=== PATIENT | male | born 1940 | race Caucasian/White ===

== ENCOUNTER → 2016-09-29 | Outpatient (CLI) | payer MEDICARE ==
[~2016-09-29] MED LIST: ASPIRIN81 M1 PO; CIPROFLOXACIN500 MG PO; DAYPRO600 M1 PO; DILANTIN PO; HYDROCODONE BIT1 T11 PO; KEFLEX500 MG PO; Lopressor25 MG PO; METOPROLOL; ONDANSETRON ODT4 MG PO; PREDNISONE50 MG PO; SIMVASTATIN40 MG PO; VERAPAMIL HCL180 MG PO; WARFARIN SOD5 MG PO
[2016-09-29 09:59] LABS: BASO # 0.1 10*3/uL (0.0-0.1); BASO % 0.9 % (0.0-1.0); EOS # 0.2 10*3/uL (0.0-0.4); EOS % 2.7 % (1.0-4.0); HEMOGLOBIN 15.7 g/dl (14.0-18.0); LYMPH % 18.4 % (27.0-41.0); MEAN CELL VOLUME 86.6 fl (80.0-94.0); MEAN CORPUSCULAR HGB 27.7 pg (27.0-31.0); MEAN PLATELET VOLUME 11.1 fl (9.6-12.3); MONO # 0.6 10*3/uL (0.1-1.0); MONO % 10.4 % (3.0-9.0); NEUT # 3.7 10*3/uL (2.3-7.9); NEUT % 67.1 % (47.0-73.0); PLATELET COUNT AUTOMATED 134 10*3/uL (130-400); RED BLOOD COUNT 5.66 10*6/uL (4.50-5.90); RED CELL DISTRI WIDTH 14.6 % (0-14.5); WHITE BLOOD COUNT 5.5 10*3/uL (4.8-10.8)
[2016-09-29 10:19] LABS: ALBUMIN 3.9 gm/dl (3.1-4.5); BILIRUBIN, DIRECT 0.2 mg/dL (0.0-0.2); POTASSIUM 4.5 mmol/L (3.5-5.1); THYROID STIM HORMONE (HS) 1.67 uIU/ml (0.358-4.75); THYROXINE (T4) TOTAL 8.5 ug/dl (4.5-12.1); TOTAL PROTEIN 6.8 gm/dL (6.4-8.2)
== END | disposition home or self-care (01) ==
LOC: LAB 09:28
PROVIDERS: Family Medicine
DX: I25.10 Atherosclerotic heart disease of native coronary artery without angina pectoris (principal); E78.00 Pure hypercholesterolemia, unspecified

== ENCOUNTER → 2016-10-21 | Outpatient (CLI) | payer MEDICARE ==
[2016-10-21 09:49] LABS: BUN 20 mg/dl (7-24); CARBON DIOXIDE 25 mmol/L (21-32); CHLORIDE 111 mmol/L (98-107); EST GLOM FILT AFRICAN AMERICAN > 60 ml/min; GLUCOSE 99 mg/dL (65-99); POTASSIUM 4.9 mmol/L (3.5-5.1); SODIUM 145 mmol/L (136-145)
== END | disposition home or self-care (01) ==
LOC: LAB 08:56
PROVIDERS: Family Medicine
DX: I48.91 Unspecified atrial fibrillation (principal); Z79.899 Other long term (current) drug therapy

== ENCOUNTER → 2017-11-10 | Outpatient (CLI) | payer MEDICARE ==
[2017-11-10 08:53] LABS: BASO # 0.1 10*3/uL (0.0-0.1); BASO % 0.7 % (0.0-1.0); EOS # 0.2 10*3/uL (0.0-0.4); EOS % 2.2 % (1.0-4.0); HEMATOCRIT 47.4 % (42.0-52.0); HEMOGLOBIN 15.5 g/dl (14.0-18.0); LYMPH # 1.2 10*3/uL (1.3-4.4); LYMPH % 16.8 % (27.0-41.0); MEAN CELL VOLUME 86.7 fl (80.0-94.0); MEAN CORPUSCULAR HGB 28.3 pg (27.0-31.0); MEAN CORPUSCULAR HGB CONC 32.7 g/dl (33.0-37.0); MEAN PLATELET VOLUME 11.9 fl (9.6-12.3); MONO # 0.6 10*3/uL (0.1-1.0); MONO % 8.8 % (3.0-9.0); NEUT # 4.9 10*3/uL (2.3-7.9); NEUT % 71.1 % (47.0-73.0); PLATELET COUNT AUTOMATED 138 10*3/uL (130-400); RED BLOOD COUNT 5.47 10*6/uL (4.50-5.90); WHITE BLOOD COUNT 6.9 10*3/uL (4.8-10.8)
[2017-11-10 09:15] LABS: ALBUMIN 3.9 gm/dl (3.1-4.5); BILIRUBIN, DIRECT 0.2 mg/dL (0.0-0.2); BUN 18 mg/dl (7-24); CHLORIDE 105 mmol/L (98-107); CHOLESTEROL 168 mg/dL (<200); CREATININE 1.36 mg/dL (0.70-1.30); POTASSIUM 4.2 mmol/L (3.5-5.1); SGOT/AST 16 IU/L (3-35); SGPT/ALT 27 U/L (12-78); SODIUM 141 mmol/L (136-145); THYROXINE (T4) TOTAL 6.5 ug/dl (4.5-12.1); URIC ACID 7.4 mg/dL (3.5-7.2)
[2017-11-10 09:21] LABS: ALKALINE PHOSPHATASE 91 U/L (45-117); HDL CHOLESTEROL 36 mg/dl (40-60); LDL CHOLESTEROL 96 mg/dL (9-159); TRIGLYCERIDES 182 mg/dl (<150); VLDL CHOLESTEROL 36 mg/dL (6-40)
== END | disposition home or self-care (01) ==
LOC: LAB 08:18
PROVIDERS: Family Medicine
DX: Z12.5 Encounter for screening for malignant neoplasm of prostate (principal); I10 Essential (primary) hypertension; M10.9 Gout, unspecified; R35.1 Nocturia

== ENCOUNTER 2018-06-10 17:13 | Inpatient (IN) | payer MEDICARE ==
[~2018-06-10] VITALS: Ht 177.8 cm; Wt 105.3 kg
--- NOTE | ~2018-06-10 | WRIGHTHP ---
[place], [place] PATIENT HISTORY AND PHYSICAL EXAM NAME: [facility]: [id number] UNIT #: [id number] ROOM: [facility] [place] DOCTOR: REGINE COLEMAN DPM BIRTHDATE: [birth year] DOS: 06/10/2018 ADDENDUM: This patient seen at bedside with Dr. Shante Luevano. Upon evaluation, it was thought that definitely this patient has a drop foot. He has weakness on his anterior muscle group as well as laterals. On viewing x-rays, he has erosions noted at the base of the fifth metatarsal. He has pinpoint pain and he has peripheral edema in the right lower leg along the peroneal tendons consistent with peroneal tendon injury or ligament injury. We will obtain MRI. Prior to that, we will get duplex scan and we will apply Unna boot to this patient. I was present physically throughout the examination and treatment with this patient. We will follow the patient accordingly. I do believe this treatment to can be done as an outpatient if needed. REGINE COLEMAN DPM CM:HISPHYS:PATIENT HISTORY AND PHYSICAL EXAMINATION [id number] REGINE COLEMAN DPM 07/13/18 1739 interface
--- NOTE | ~2018-06-10 | PR ---
[place], [place] PROGRESS NOTE [id number] UNIT #: [id number] ROOM: 501 DOCTOR: CALVIN ZHENG MD BIRTHDATE: [birth year] DOS: 06/14/2018 SUBJECTIVE: I am covering for Sahil, who saw the patient yesterday. The patient has chronic atrial fibrillation. Unfortunately, unable to be anticoagulated because of the contraindication. He is comfortably sleeping. The patient denies any chest discomfort or shortness of breath. The patient is being treated for cellulitis. He is hemodynamically stable. REVIEW OF SYSTEMS: A 6-8 systems are reviewed and are unchanged as per the HPI. No chest pain. No shortness of breath. No GI or issues. He is hemodynamically stable. He is neurologically stable. OBJECTIVE: IMPRESSION: Blood pressure is 120/70 and heart rate is 88. He is in atrial fibrillation, rate is upper limit of normal. NECK: Supple. No JVD. LUNGS: Diminished breath sounds. HEART: Sounds are irregularly irregular. ABDOMEN: Soft, nontender. NEUROLOGICAL: Stable. EXTREMITIES: There is erythema of the right foot and edema of the right foot. No clubbing, no cyanosis. LABORATORY DATA: Sodium is 139, potassium is 4.4, and creatinine is 1.2. Hemoglobin is 12 and hematocrit is 39.3. IMPRESSION: Cellulitis of the right foot, chronic atrial fibrillation, and hypertension. RECOMMENDATIONS: Continue the present care. Continue IV antibiotics. Unfortunately, unable to be anticoagulated at this point because of craniotomy and intracerebral bleed. We will follow up. CALVIN ZHENG MD CM:PNTRANS [id number] CALVIN ZHENG MD 06/27/18 1257 interface
--- NOTE | ~2018-06-10 | CON ---
[place], [place] REPORT OF CONSULTATION NAME: AMANDA YING UNIT #: [id number] ROOM: 501 DOCTOR: CORNELIO NUNN MD BIRTHDATE: [birth year] DOS: 06/13/2018 HISTORY OF PRESENT ILLNESS: This is a 78-year-old -[place] man with a history of atrial fibrillation, who had a stroke in the remote past. He had an intracranial hemorrhage as well and recently had been to [facility] because of some infection in the skull where he had a plate put in, plate was removed. He has never had a heart attack, heart failure, but has essential hypertension, morbid obesity. He has had a cholecystectomy, colon resection and colostomy, colon resection was for cancer. SOCIAL HISTORY: He does not smoke nor does he drink alcoholic beverages. He lives at home with his . He was admitted to the hospital a few days ago because of redness and swelling and pain in the right foot. He had felt a little weak, but had no shivering and did not feel feverish. He has not had any undue shortness of breath, chest pain, palpitations, and no loss of consciousness and no new neurological symptoms. HOME MEDICATIONS: Included aspirin 81 mg daily and verapamil for rate control. PHYSICAL EXAMINATION: GENERAL: The patient who is a morbidly obese, pleasant and alert. He is not in any distress. There is no anemia, thyromegaly. He is not cyanotic nor jaundiced. VITAL SIGNS: Temperature is 99.6 degrees Fahrenheit, pulse is 74 irregular, blood pressure 140/77. NECK: JVP is normal. No bruit in the neck. HEART: There is no cardiomegaly, no murmurs are present. There is a trace left pretibial edema and 2+ right pretibial edema and 2-3+ ankle and pedal edema on the right side. SKIN: Red, warm and it is tender. Pulses are rather bounding. RESPIRATORY: He is not tachypneic, but has crackles in both lower zones. LABORATORY DATA: Chest x-ray was not done. IMPRESSION: This patient with chronic atrial fibrillation and rate is controlled with verapamil, which should be continued. The patient has contraindication to use of anticoagulation, it is not recommended. Currently, he is off aspirin because of craniotomy and surgery that he had. He has acute right foot and leg cellulitis causing much of the edema and no evidence of heart failure is present. I thank for this consult. [place], [place] REPORT OF CONSULTATION NAME: AMANDA YING UNIT #: [id number] ROOM: [facility] DOCTOR: CORNELIO NUNN MD BIRTHDATE: [birth year] CORNELIO NUNN MD CM:CONSTR:REPORT OF CONSULTATION 1729 06/14/18 0510 interface
[2018-06-10 17:14] VITALS: BP 158/89
[2018-06-10] MEDS ORDERED: VERAPAMIL HCL120 M1 PO (17:38)
[2018-06-10 18:21] LABS: BASO % 0.3 % (0.0-1.0); EOS # 0.1 10*3/uL (0.0-0.4); EOS % 1.1 % (1.0-4.0); HEMATOCRIT 47.3 % (42.0-52.0); HEMOGLOBIN 15.3 g/dl (14.0-18.0); LYMPH % 11.5 % (27.0-41.0); MEAN CELL VOLUME 85.4 fl (80.0-94.0); MEAN CORPUSCULAR HGB 27.6 pg (27.0-31.0); MEAN CORPUSCULAR HGB CONC 32.3 g/dl (33.0-37.0); MEAN PLATELET VOLUME 11.6 fl (9.6-12.3); MONO # 1.1 10*3/uL (0.1-1.0); MONO % 12.8 % (3.0-9.0); NEUT # 6.6 10*3/uL (2.3-7.9); PLATELET COUNT AUTOMATED 170 10*3/uL (130-400); RED BLOOD COUNT 5.54 10*6/uL (4.50-5.90); RED CELL DISTRI WIDTH 14.4 % (0-14.5); WHITE BLOOD COUNT 8.9 10*3/uL (4.8-10.8)
[2018-06-10 18:45] LABS: ALBUMIN 3.4 gm/dl (3.1-4.5); CREATININE 1.42 mg/dL (0.70-1.30); POTASSIUM 4.1 mmol/L (3.5-5.1); TOTAL PROTEIN 7.5 gm/dL (6.4-8.2)
[2018-06-10 18:46] LABS: URIC ACID 6.8 mg/dL (3.5-7.2)
[2018-06-10 20:55] VITALS: BP 152/77
[2018-06-10] MEDS ORDERED: CEFAZOLIN2 GM/20 M1 IV (21:19)
[2018-06-11] VITALS: BP 145/82
[2018-06-11 06:11] LABS: BASO # 0.1 10*3/uL (0.0-0.1); BASO % 0.7 % (0.0-1.0); EOS # 0.1 10*3/uL (0.0-0.4); EOS % 1.4 % (1.0-4.0); HEMATOCRIT 44.6 % (42.0-52.0); HEMOGLOBIN 14.1 g/dl (14.0-18.0); LYMPH # 1.3 10*3/uL (1.3-4.4); LYMPH % 18.3 % (27.0-41.0); MEAN CELL VOLUME 87.3 fl (80.0-94.0); MEAN CORPUSCULAR HGB 27.6 pg (27.0-31.0); MEAN CORPUSCULAR HGB CONC 31.6 g/dl (33.0-37.0); MEAN PLATELET VOLUME 11.9 fl (9.6-12.3); MONO # 1.1 10*3/uL (0.1-1.0); MONO % 14.6 % (3.0-9.0); NEUT # 4.7 10*3/uL (2.3-7.9); NEUT % 64.6 % (47.0-73.0); PLATELET COUNT AUTOMATED 149 10*3/uL (130-400); RED BLOOD COUNT 5.11 10*6/uL (4.50-5.90); RED CELL DISTRI WIDTH 14.5 % (0-14.5); WHITE BLOOD COUNT 7.3 10*3/uL (4.8-10.8)
[2018-06-11 06:16] LABS: CREATININE 1.42 mg/dL (0.70-1.30); FREE T4 1.03 ng/dl (0.76-1.46); PHOSPHOROUS 3.2 mg/dL (2.5-4.9); POTASSIUM 4.2 mmol/L (3.5-5.1); TOTAL PROTEIN 6.6 gm/dL (6.4-8.2); URIC ACID 6.8 mg/dL (3.5-7.2)
[2018-06-11 06:21] LABS: THYROID STIM HORMONE (HS) 0.727 uIU/ml (0.358-4.75)
[2018-06-11 08:00] VITALS: BP 152/78; BP 154/96
[2018-06-11 16:00] VITALS: BP 136/62
[2018-06-11 20:00] VITALS: BP 124/57
[2018-06-12] VITALS: BP 140/98
[2018-06-12 00:20] VITALS: BP 136/82
[2018-06-12 06:09] LABS: BASO # 0.1 10*3/uL (0.0-0.1); BASO % 0.5 % (0.0-1.0); EOS # 0.1 10*3/uL (0.0-0.4); HEMATOCRIT 40.3 % (42.0-52.0); HEMOGLOBIN 12.8 g/dl (14.0-18.0); LYMPH # 1.1 10*3/uL (1.3-4.4); LYMPH % 11.5 % (27.0-41.0); MEAN CELL VOLUME 86.5 fl (80.0-94.0); MEAN CORPUSCULAR HGB 27.5 pg (27.0-31.0); MEAN CORPUSCULAR HGB CONC 31.8 g/dl (33.0-37.0); MEAN PLATELET VOLUME 12.4 fl (9.6-12.3); MONO % 11.1 % (3.0-9.0); NEUT # 6.9 10*3/uL (2.3-7.9); NEUT % 75.5 % (47.0-73.0); PLATELET COUNT AUTOMATED 136 10*3/uL (130-400); RED BLOOD COUNT 4.66 10*6/uL (4.50-5.90); RED CELL DISTRI WIDTH 14.6 % (0-14.5); WHITE BLOOD COUNT 9.1 10*3/uL (4.8-10.8)
[2018-06-12 06:47] LABS: BUN 17 mg/dl (7-24); CHLORIDE 107 mmol/L (98-107); CREATININE 1.25 mg/dL (0.70-1.30); POTASSIUM 4.2 mmol/L (3.5-5.1); SODIUM 139 mmol/L (136-145)
[2018-06-12 08:00] VITALS: BP 143/63; BP 148/77
[2018-06-12 12:00] VITALS: BP 147/70
[2018-06-12 16:00] VITALS: BP 114/87
[2018-06-12 20:00] VITALS: BP 124/50
[2018-06-13] VITALS: BP 136/57
[2018-06-13 07:00] LABS: BASO # 0.1 10*3/uL (0.0-0.1); BASO % 0.6 % (0.0-1.0); EOS # 0.1 10*3/uL (0.0-0.4); EOS % 1.7 % (1.0-4.0); HEMATOCRIT 39.6 % (42.0-52.0); HEMOGLOBIN 12.2 g/dl (14.0-18.0); LYMPH # 1.1 10*3/uL (1.3-4.4); MEAN CELL VOLUME 88.2 fl (80.0-94.0); MEAN CORPUSCULAR HGB 27.2 pg (27.0-31.0); MEAN CORPUSCULAR HGB CONC 30.8 g/dl (33.0-37.0); MEAN PLATELET VOLUME 12.5 fl (9.6-12.3); MONO # 0.8 10*3/uL (0.1-1.0); MONO % 9.9 % (3.0-9.0); NEUT # 5.7 10*3/uL (2.3-7.9); NEUT % 73.4 % (47.0-73.0); PLATELET COUNT AUTOMATED 137 10*3/uL (130-400); RED BLOOD COUNT 4.49 10*6/uL (4.50-5.90); RED CELL DISTRI WIDTH 14.6 % (0-14.5); WHITE BLOOD COUNT 7.8 10*3/uL (4.8-10.8)
[2018-06-13 07:16] LABS: BUN 14 mg/dl (7-24); CHLORIDE 108 mmol/L (98-107); CREATININE 1.21 mg/dL (0.70-1.30); POTASSIUM 4.4 mmol/L (3.5-5.1); SODIUM 139 mmol/L (136-145)
[2018-06-13 08:00] VITALS: BP 145/79
[2018-06-13 16:00] VITALS: BP 148/77
[2018-06-13 20:00] VITALS: BP 123/63
[2018-06-14] VITALS: BP 120/73
[2018-06-14 08:00] VITALS: BP 132/86
[2018-06-14 12:00] VITALS: BP 141/84
[2018-06-14] MEDS ORDERED: HYDROCODONE-AC1 EAC1 PO (14:21)
[2018-06-14] MEDS ORDERED: ALLOPURINOL300 MG PO (14:21)
== END 2018-06-14 14:59 | disposition home health service (06) | DRG 603 ==
LOC: ED 17:13 → EDHOLD 19:59 → 5E 19:59
PROVIDERS: Internal Medicine; Physician Assistant
DX: L03.115 Cellulitis of right lower limb (principal); E44.0 Moderate protein-calorie malnutrition; N18.3 Chronic kidney disease, stage 3 (moderate); D72.810 Lymphocytopenia; R73.9 Hyperglycemia, unspecified; R00.0 Tachycardia, unspecified; I12.9 Hypertensive chronic kidney disease with stage 1 through stage 4 chronic kidney disease, or unspecified chronic kidney disease; E66.01 Morbid (severe) obesity due to excess calories; I48.2 Chronic atrial fibrillation; M21.371 Foot drop, right foot; Z79.899 Other long term (current) drug therapy; Z79.82 Long term (current) use of aspirin; Z90.49 Acquired absence of other specified parts of digestive tract; Z86.14 Personal history of Methicillin resistant Staphylococcus aureus infection; T84.7XXS Infection and inflammatory reaction due to other internal orthopedic prosthetic devices, implants and grafts, sequela; Z93.3 Colostomy status; Z86.73 Personal history of transient ischemic attack (TIA), and cerebral infarction without residual deficits; Z85.038 Personal history of other malignant neoplasm of large intestine; Z87.891 Personal history of nicotine dependence; Z80.9 Family history of malignant neoplasm, unspecified; Z83.3 Family history of diabetes mellitus; Z82.49 Family history of ischemic heart disease and other diseases of the circulatory system; Z91.048 Other nonmedicinal substance allergy status; Z68.33 Body mass index [BMI] 33.0-33.9, adult

== ENCOUNTER → 2018-09-05 | Outpatient (CLI) | payer MEDICARE ==
[~2018-09-05] MED LIST changes: +ALLOPURINOL300 MG PO; +CEFAZOLIN2 GM/20 M1 IV; +HYDROCODONE-AC1 EAC1 PO; +VERAPAMIL HCL120 M1 PO
== END | disposition home or self-care (01) ==
LOC: MRI 10:02
DX: G06.0 Intracranial abscess and granuloma (principal); G93.89 Other specified disorders of brain

== ENCOUNTER → 2019-06-15 | Outpatient (CLI) | payer MEDICARE | END | disposition home or self-care (01) | LOC: CP 13:13 | DX: L02.91 Cutaneous abscess, unspecified (principal); R56.9 Unspecified convulsions; M95.2 Other acquired deformity of head ==

== ENCOUNTER → 2019-07-07 | Outpatient (CLI) | payer MEDICARE ==
[2019-07-07 12:09] LABS: BASO # 0.1 10*3/uL (0.0-0.1); BASO % 0.9 % (0.0-1.0); EOS # 0.2 10*3/uL (0.0-0.4); EOS % 2.5 % (1.0-4.0); HEMATOCRIT 50.7 % (42.0-52.0); HEMOGLOBIN 16.1 g/dl (14.0-18.0); LYMPH # 1.8 10*3/uL (1.3-4.4); LYMPH % 22.6 % (27.0-41.0); MEAN CELL VOLUME 87.3 fl (80.0-94.0); MEAN CORPUSCULAR HGB 27.7 pg (27.0-31.0); MEAN CORPUSCULAR HGB CONC 31.8 g/dl (33.0-37.0); MEAN PLATELET VOLUME 11.3 fl (9.6-12.3); MONO # 0.7 10*3/uL (0.1-1.0); MONO % 8.5 % (3.0-9.0); NEUT # 5.2 10*3/uL (2.3-7.9); NEUT % 65.1 % (47.0-73.0); PLATELET COUNT AUTOMATED 202 10*3/uL (130-400); RED BLOOD COUNT 5.81 10*6/uL (4.50-5.90); RED CELL DISTRI WIDTH 15.1 % (0-14.5)
[2019-07-07 12:49] LABS: ALBUMIN 3.4 gm/dl (3.1-4.5); BILIRUBIN, DIRECT 0.1 mg/dL (0.0-0.2); CREATININE 1.69 mg/dL (0.70-1.30); POTASSIUM 4.2 mmol/L (3.5-5.1); THYROXINE (T4) TOTAL 7.5 ug/dl (4.5-12.1)
[2019-07-07 12:56] LABS: THYROID STIM HORMONE (HS) 1.47 uIU/ml (0.358-4.75)
== END | disposition home or self-care (01) ==
LOC: LAB 11:33
PROVIDERS: Family Medicine
DX: Z12.5 Encounter for screening for malignant neoplasm of prostate (principal); E55.9 Vitamin D deficiency, unspecified; R53.83 Other fatigue; R35.1 Nocturia

== ENCOUNTER → 2020-09-07 | Outpatient (CLI) | payer MEDICARE | END | disposition home or self-care (01) | LOC: COVID19 09:47 | PROVIDERS: ATTEND Pediatrics | DX: Z20.828 Contact with and (suspected) exposure to other viral communicable diseases (principal) ==

== ENCOUNTER → 2020-12-11 | Outpatient (CLI) | payer MEDICARE ==
[~2020-12-11] MED LIST changes: +LEVETIRACETAM500 MG PO; +VITAMIN D31250 MC1 PO
== END | disposition home or self-care (01) ==
LOC: COVID19 12:47
PROVIDERS: ATTEND Nurse Practitioner Family
DX: U07.1 COVID-19 (principal)

== ENCOUNTER 2020-12-17 19:00 | Inpatient (IN) | payer MEDICARE ==
[~2020-12-17] VITALS: Ht 177.8 cm; Wt 92.1 kg
[~2020-12-17 19:00] MED LIST changes: -LEVETIRACETAM500 MG PO; -VITAMIN D31250 MC1 PO
[2020-12-17 19:09] VITALS: BP 102/60
[2020-12-17 19:30] VITALS: BP 161/74
[2020-12-17 20:11] LABS: BASO % 0.2 % (0.0-1.0); HEMATOCRIT 50.3 % (42.0-52.0); LYMPH # 0.5 10*3/uL (1.3-4.4); LYMPH % 10.3 % (27.0-41.0); MEAN CELL VOLUME 84.5 fl (80.0-94.0); MEAN CORPUSCULAR HGB 28.1 pg (27.0-31.0); MEAN CORPUSCULAR HGB CONC 33.2 g/dl (33.0-37.0); MEAN PLATELET VOLUME 12.1 fl (9.6-12.3); MONO # 0.3 10*3/uL (0.1-1.0); MONO % 7.5 % (3.0-9.0); NEUT # 3.6 10*3/uL (2.3-7.9); NEUT % 81.8 % (47.0-73.0); PLATELET COUNT AUTOMATED 109 10*3/uL (130-400); RED BLOOD COUNT 5.95 10*6/uL (4.50-5.90); RED CELL DISTRI WIDTH 14.5 % (0-14.5); WHITE BLOOD COUNT 4.4 10*3/uL (4.8-10.8)
[2020-12-17 20:26] LABS: ALBUMIN 2.9 gm/dl (3.1-4.5); CREATININE 1.52 mg/dL (0.70-1.30); POTASSIUM 3.8 mmol/L (3.5-5.1); TOTAL PROTEIN 6.6 gm/dL (6.4-8.2); TROPONIN I 0.02 ng/ml (<0.045)
[2020-12-17 20:40] LABS: ABG BASE EXCESS -0.9 mmol/L (-2.0-2.0); ARTERIAL BLOOD GAS PH 7.484 (7.35-7.45); ARTERIAL BLOOD GAS PO2 59.9 (80-90)
[2020-12-17] MEDS ORDERED: VITAMIN D31250 MC1 PO (22:19)
[2020-12-17] MEDS ORDERED: LEVETIRACETAM500 MG PO (22:21)
[2020-12-17 22:37] VITALS: BP 140/86
[2020-12-17 23:10] VITALS: BP 128/90
[2020-12-18] VITALS: BP 128/90
[2020-12-18 05:58] LABS: ALBUMIN 2.8 gm/dl (3.1-4.5); CREATININE 1.55 mg/dL (0.70-1.30); POTASSIUM 3.8 mmol/L (3.5-5.1); TOTAL PROTEIN 6.5 gm/dL (6.4-8.2)
[2020-12-18 06:19] LABS: HEMATOCRIT 53.9 % (42.0-52.0); MEAN CELL VOLUME 86.4 fl (80.0-94.0); MEAN CORPUSCULAR HGB 27.7 pg (27.0-31.0); MEAN CORPUSCULAR HGB CONC 32.1 g/dl (33.0-37.0); MEAN PLATELET VOLUME 12.1 fl (9.6-12.3); PLATELET COUNT AUTOMATED 107 10*3/uL (130-400); RED BLOOD COUNT 6.24 10*6/uL (4.50-5.90); RED CELL DISTRI WIDTH 14.9 % (0-14.5); WHITE BLOOD COUNT 3.2 10*3/uL (4.8-10.8)
[2020-12-18 06:46] LABS: ATYPICAL LYMPHS 1 % (0-0); BASOPHILS 1 % (0-1); TOTAL CELLS COUNTED 100 #CELLS
[2020-12-18 06:47] LABS: BURR CELLS FEW; OVALOCYTES FEW; PLATELET SUFFICIENCY LOW (NORMAL)
[2020-12-18 07:57] LABS: VITAMIN D, 25-HYDROXY 69.8 ng/mL (30-100)
[2020-12-18 08:00] VITALS: BP 132/86
[2020-12-18 12:00] VITALS: BP 132/72
[2020-12-18 16:00] VITALS: BP 127/72
[2020-12-18 20:00] VITALS: BP 125/60
[2020-12-18 23:51] VITALS: BP 128/96
[2020-12-19 06:10] LABS: BASO % 0.2 % (0.0-1.0); HEMATOCRIT 52.3 % (42.0-52.0); LYMPH # 0.6 10*3/uL (1.3-4.4); LYMPH % 5.5 % (27.0-41.0); MEAN CELL VOLUME 86.6 fl (80.0-94.0); MEAN CORPUSCULAR HGB 28.1 pg (27.0-31.0); MEAN CORPUSCULAR HGB CONC 32.5 g/dl (33.0-37.0); MEAN PLATELET VOLUME 12.2 fl (9.6-12.3); MONO # 0.7 10*3/uL (0.1-1.0); MONO % 6.2 % (3.0-9.0); NEUT # 9.3 10*3/uL (2.3-7.9); NEUT % 87.6 % (47.0-73.0); PLATELET COUNT AUTOMATED 137 10*3/uL (130-400); RED BLOOD COUNT 6.04 10*6/uL (4.50-5.90); RED CELL DISTRI WIDTH 15.2 % (0-14.5); WHITE BLOOD COUNT 10.6 10*3/uL (4.8-10.8)
[2020-12-19 06:12] LABS: ALBUMIN 2.5 gm/dl (3.1-4.5); CREATININE 1.49 mg/dL (0.70-1.30); POTASSIUM 3.5 mmol/L (3.5-5.1); TOTAL PROTEIN 6.1 gm/dL (6.4-8.2)
[2020-12-19 08:20] VITALS: BP 139/70
[2020-12-19 11:45] VITALS: BP 133/55
[2020-12-19 16:00] VITALS: BP 112/68; BP 119/83
[2020-12-19 20:00] VITALS: BP 122/84
[2020-12-20] VITALS: BP 135/89
[2020-12-20 06:05] LABS: ALBUMIN 2.6 gm/dl (3.1-4.5); ALKALINE PHOSPHATASE 81 U/L (45-117); BUN 34 mg/dl (7-24); CHLORIDE 109 mmol/L (98-107); CREATININE 1.34 mg/dL (0.70-1.30); LDH 480 U/L (87-241); SGOT/AST 42 IU/L (3-35); SGPT/ALT 63 U/L (12-78); SODIUM 139 mmol/L (136-145); TOTAL PROTEIN 6.1 gm/dL (6.4-8.2)
[2020-12-20 06:07] LABS: POTASSIUM 3.8 mmol/L (3.5-5.1)
[2020-12-20 06:23] LABS: HEMATOCRIT 51.1 % (42.0-52.0); MEAN CORPUSCULAR HGB 28.3 pg (27.0-31.0); MEAN CORPUSCULAR HGB CONC 32.9 g/dl (33.0-37.0); MEAN PLATELET VOLUME 12.7 fl (9.6-12.3); PLATELET COUNT AUTOMATED 146 10*3/uL (130-400); RED BLOOD COUNT 5.94 10*6/uL (4.50-5.90); RED CELL DISTRI WIDTH 14.9 % (0-14.5); WHITE BLOOD COUNT 11.5 10*3/uL (4.8-10.8)
[2020-12-20 07:37] LABS: BURR CELLS MODERATE; PLATELET SUFFICIENCY NORMAL (NORMAL); TOTAL CELLS COUNTED 100 #CELLS
[2020-12-20 08:00] VITALS: BP 137/82
[2020-12-20 12:00] VITALS: BP 138/78
[2020-12-20 16:00] VITALS: BP 128/75
[2020-12-20 20:00] VITALS: BP 136/66
[2020-12-21] VITALS: BP 137/66
[2020-12-21 06:07] LABS: CREATININE 1.37 mg/dL (0.70-1.30)
[2020-12-21 06:11] LABS: HEMATOCRIT 49.7 % (42.0-52.0); MEAN CELL VOLUME 86.6 fl (80.0-94.0); MEAN CORPUSCULAR HGB CONC 32.4 g/dl (33.0-37.0); MEAN PLATELET VOLUME 12.4 fl (9.6-12.3); PLATELET COUNT AUTOMATED 153 10*3/uL (130-400); RED BLOOD COUNT 5.74 10*6/uL (4.50-5.90); WHITE BLOOD COUNT 13.8 10*3/uL (4.8-10.8)
[2020-12-21 06:51] LABS: ATYPICAL LYMPHS 1 % (0-0); BURR CELLS FEW; PLATELET SUFFICIENCY NORMAL (NORMAL); TOTAL CELLS COUNTED 100 #CELLS
[2020-12-21 08:00] VITALS: BP 186/96
[2020-12-21 12:00] VITALS: BP 150/88
[2020-12-21 16:00] VITALS: BP 110/84
[2020-12-21 20:00] VITALS: BP 135/66
[2020-12-22] VITALS (7 sets, daily range): BP systolic 00–154; BP diastolic 00–92
[2020-12-22 06:02] LABS: CREATININE 1.42 mg/dL (0.70-1.30)
[2020-12-22 06:05] LABS: POTASSIUM 4.4 mmol/L (3.5-5.1)
[2020-12-22 06:32] LABS: HEMATOCRIT 51.6 % (42.0-52.0); MEAN CELL VOLUME 86.3 fl (80.0-94.0); MEAN CORPUSCULAR HGB 28.1 pg (27.0-31.0); MEAN CORPUSCULAR HGB CONC 32.6 g/dl (33.0-37.0); MEAN PLATELET VOLUME 11.8 fl (9.6-12.3); PLATELET COUNT AUTOMATED 129 10*3/uL (130-400); RED BLOOD COUNT 5.98 10*6/uL (4.50-5.90); RED CELL DISTRI WIDTH 15.1 % (0-14.5)
[2020-12-22 07:08] LABS: BURR CELLS FEW; PLATELET SUFFICIENCY LOW (NORMAL); TOTAL CELLS COUNTED 100 #CELLS
== END 2020-12-22 15:57 | DRG 871 ==
LOC: ED 19:00 → EDHOLD 21:16 → 4E 21:16 → ICCU 12-22 11:38
PROVIDERS: Emergency Medicine; Internal Medicine; ADMIT Student in an Organized Health Care Education/Training Program; ATTEND Student in an Organized Health Care Education/Training Program
PROC: 5A09357 Assistance with Respiratory Ventilation, Less than 24 Consecutive Hours, Continuous Positive Airway Pressure (ICD-10-PCS; 2020-12-17)
PROC: XW033E5 Introduction of Remdesivir Anti-infective into Peripheral Vein, Percutaneous Approach, New Technology Group 5 (ICD-10-PCS; principal; 2020-12-18)
PROC: 5A09357 Assistance with Respiratory Ventilation, Less than 24 Consecutive Hours, Continuous Positive Airway Pressure (ICD-10-PCS; 2020-12-18)
PROC: 5A0935A Assistance with Respiratory Ventilation, Less than 24 Consecutive Hours, High Flow/Velocity Cannula (ICD-10-PCS; 2020-12-18)
PROC: 5A09357 Assistance with Respiratory Ventilation, Less than 24 Consecutive Hours, Continuous Positive Airway Pressure (ICD-10-PCS; 2020-12-19)
PROC: 5A0935A Assistance with Respiratory Ventilation, Less than 24 Consecutive Hours, High Flow/Velocity Cannula (ICD-10-PCS; 2020-12-19)
PROC: 5A09357 Assistance with Respiratory Ventilation, Less than 24 Consecutive Hours, Continuous Positive Airway Pressure (ICD-10-PCS; 2020-12-20)
PROC: 5A09457 Assistance with Respiratory Ventilation, 24-96 Consecutive Hours, Continuous Positive Airway Pressure (ICD-10-PCS; 2020-12-21)
DX: A41.9 Sepsis, unspecified organism (principal); U07.1 COVID-19; J96.01 Acute respiratory failure with hypoxia; J12.82 Pneumonia due to coronavirus disease 2019; E44.0 Moderate protein-calorie malnutrition; D72.810 Lymphocytopenia; R73.9 Hyperglycemia, unspecified; R74.01 Elevation of levels of liver transaminase levels; Z66 Do not resuscitate; Z51.5 Encounter for palliative care; N18.32 Chronic kidney disease, stage 3b; I12.9 Hypertensive chronic kidney disease with stage 1 through stage 4 chronic kidney disease, or unspecified chronic kidney disease; E66.9 Obesity, unspecified; D69.6 Thrombocytopenia, unspecified; R65.20 Severe sepsis without septic shock; I48.91 Unspecified atrial fibrillation; Z82.49 Family history of ischemic heart disease and other diseases of the circulatory system; Z83.3 Family history of diabetes mellitus; Z68.28 Body mass index [BMI] 28.0-28.9, adult